=== PATIENT | female | born 1995 | race Caucasian/White ===

== ENCOUNTER 2017-06-22 15:12 | Observation (INO) ==
--- NOTE | 2017-06-22 15:26 | OB/GYN Progress Note ---
Date of Encounter: 06/22/17 Time of Encounter: 17:56 - Assessment and Plan (1) 28 weeks gestation of Status: Acute (2) Headache Status: Acute Plan: - PIH labs performed, negative - vitals within normal limits - performed OMT of the thoracic, neck, and head region. Pain decreased after. - gave education on using heat to help relax muscles, encouraged deep breathing exercises for relaxation - patient safe to discharge home Qualifiers: Headache type: tension-type Headache chronicity pattern: acute headache Intractability: not intractable Qualified Code(s): G44.209 - Tension-type headache, unspecified, not intractable Subjective - Subjective Principal diagnosis: headache Interval history: Patient is a 22 y/o female at 28 +0 weeks presented to L&D with headaches and changes in vision. Patient states that she has had 3 days of a headache on the right side of her forehead. Patient describes pain as achy 5/ 10. Patient states that this headache is different from her typical migraines as she is not sensitive to light or sound and location is different. Patient states that she has had some vision changes yesterday and today with associated dizziness. Patient did fall and arm but on a cushion in today after seeing white but had not eaten anything all day. Patient has tried Tylenol, magnesium , food, water, caffeine without relief. Patient has had a nasal congestion 2 weeks ago and was taking Mucinex and still has post viral cough. Patient denies fever, chills, vomiting, dysuria, hematuria, nausea, vomiting, shortness of breath, chest pain. Antepartum ROS: other (headache) Objective - Exam FHR: category 1 Auscultation: left: wheezes, right: normal Abdomen: Present: soft Uterus: Present: normal, firm Comments: MS: tender points at right medial inferior scapular border and right transverse process at C4. Tender points short pain straight up to her head. Somatic dysfunction at head and thoracic region.
[2017-06-22] MEDS ORDERED: Ringers Solution, Lactated 500 ML IVC ONE (15:31)
[2017-06-22] MEDS ORDERED: Ringers Solution, Lactated 1,000 ML IVC SCH (15:45)
[2017-06-22 16:10] LABS: Basophils % 0.2 %; Eosinophils # 0.1 K/mcL (0.0-0.6); Eosinophils % 0.7 %; Hematocrit 30.6 % (35.3-44.9); Hemoglobin 10.5 g/dL (11.5-15.4); Immature Granulocytes % 0.6 % (0-4); Lymphocytes # 2.5 K/mcL (0.6-4.6); Lymphocytes % 13.3 %; Mean Corpuscular HGB Conc 34.3 g/dL (31.6-35.5); Mean Corpuscular Hemoglobin 30.3 pg (28.0-33.3); Mean Corpuscular Volume 88.4 fL (83.0-100.0); Mean Platelet Volume 11.1 fL (9.4-12.4); Monocytes # 0.9 K/mcL (0.0-1.3); Monocytes % 4.7 %; Neutrophils # 15.1 K/mcL (1.6-8.9); Platelet Count 290 K/mcL (140-400); Red Blood Count 3.46 M/mcL (3.82-4.97); Segmented Neutrophils % 80.5 %
[2017-06-22 16:30] LABS: Alanine Aminotransferase 10 Units/L (7-52); Aspartate Amino Transferase 10 Units/L (13-39); BUN/Creatinine Ratio 13 (6-26); Blood Urea Nitrogen 6 mg/dL (6-20); Lactate Dehydrogenase 102 Units/L (140-271); Uric Acid 4.5 mg/dL (2.3-7.6); eGFR For African Americans > 60 (> 60); eGFR For Non-African Americans > 60 (> 60)
[2017-06-22 16:49] LABS: Amphetamine Screen,Urine Negative ng/mL (Cutoff=1000); Benzodiazepines Screen,Urine Negative ng/mL (Cutoff=200); Cannabinoid Screen,Urine Negative ng/mL (Cutoff = 50); Cocaine Screen,Urine Negative ng/mL (Cutoff= 300); Opiate Screen,Urine Negative ng/mL (Cutoff=300); Phencyclidine Screen,Urine Negative ng/mL (Cutoff=25)
[2017-06-22 16:50] LABS: Barbiturate Screen,Urine Positive ng/mL (Cutoff=200)
== END 2017-06-22 17:07 | disposition home or self-care (01) ==
LOC: 1NENULAB
PROVIDERS: ADMIT Obstetrics & Gynecology; ATTEND Obstetrics & Gynecology

== ENCOUNTER 2017-08-27 19:04 | Observation (INO) ==
--- NOTE | 2017-08-27 19:58 | OB/GYN Progress Note ---
Date of Encounter: 08/27/17 Time of Encounter: 19:54 - Assessment and Plan (1) 37 weeks gestation of Current Visit: Yes Status: Acute admitted for observation to r/o SROM (2) Vaginal discharge during in third trimester Current Visit: Yes Status: Acute Negative Pooling, Negative FERN No Fluid return after SVE Subjective - Subjective Principal diagnosis: Vaginal discharge Interval history: Patient is 22 y/o at 37w3d presents to labor and delivery with concerns of leaking fluid. Patient reports she has a small gush around 5:45pm. Patient reports that she was told if she had any leaking to come in for evaluation due to last JULIANA being 8.1cm. Patient is scheduled for repeat scan on 08/31/17. Patient denies any contractions, VB, vaginal itching, burning or odor, denies dysuria or urinary frequency. Patient reports +FM. Antepartum ROS: loss of fluid, movement normal, no vaginal bleeding, no contractions Objective - Vital Signs Vital Signs: Intake and Output 08/27/17 08/27/17 08/27/17 07:59 15:59 23:59 Other: Weight 82.4 kg Patient Weight 08/27/17 23:59 Weight 82.4 kg - Exam FHR: auscultation normal, category 1 FHR comments: baseline 140 bpm moderate amount of variability +15x15 accels no decels noted. No contractions noted. Auscultation: bilateral: normal Abdomen: Present: normal appearance, soft, gravid Cervical dilation: 1 Cervix effacement: 50 station: -3 Comments: speculum exam: Negative pooling, Negative FERN. small amount of white discharge noted.
--- NOTE | 2017-08-27 20:04 | Discharge Summary ---
Date of Encounter: 08/27/17 Time of Encounter: 20:03 - Discharge Diagnosis (1) 37 weeks gestation of Priority: Primary Status: Acute Comments: admitted for observation (2) Vaginal discharge during in third trimester Priority: Secondary Status: Acute Comments: SROM ruled out - Discharge Medications Home Medications: Famotidine [Pepcid] 20 mg PO BID #10 tablet 04/19/17 [Rx] Folic Acid 06/22/17 [History] Phenergan 06/22/17 [History] Formula Tablet 06/22/17 [History] Allergies/Adverse Reactions: 3 Allergy/AdvReac Type Severity Reaction Status Date / Time cephalexin [From Keflex] Allergy Hives Verified 02/01/15 20:33 tramadol [From Ultram] Allergy Nausea Verified 02/01/15 20:33 CLERNIO Allergy Hives Uncoded 02/01/15 20:33 Date of admission: 08/27/17 19:04 Discharging clinician: Linda Hyatt Anticipated date of discharge: 08/27/17 - Patient Status Disposition: Home, Self-Care Condition: Good Functional capacity at discharge: independent ambulation - Discharge Instructions Follow Up With: Haven Veliz CNM [Advanced Practice Nurse] - - Diet and Activity Activity: increase activity as tolerated Diet: regular diet Hospital Course IMPORT/EXPORT CLERK Time Attestation: Total time spent providing and/or coordinating discharge services: Time Spent: Less than 30 minutes Exam - Constitutional General appearance IM: A&O X 3, pleasant, answers questions appropriately - Respiratory Respiratory exam: Present: CTAB - Cardiovascular Cardiovascular exam IM: Present: RRR, +S1, +S2 - GI/Abdominal GI/Abdominal exam IM: normal bowel sounds - Extremities Exam Extremities exam IM: Present: full ROM, normal capillary refill, normal inspection - VTE Reasons for not Prescribing Prophylaxis: Treatment not Indicated - Low risk for VTE
[2017-08-27 21:00] LABS: Amphetamine Screen,Urine Negative ng/mL (Cutoff=1000); Barbiturate Screen,Urine Negative ng/mL (Cutoff=200); Benzodiazepines Screen,Urine Negative ng/mL (Cutoff=200); Cannabinoid Screen,Urine Negative ng/mL (Cutoff = 50); Cocaine Screen,Urine Negative ng/mL (Cutoff= 300); Opiate Screen,Urine Negative ng/mL (Cutoff=300); Phencyclidine Screen,Urine Negative ng/mL (Cutoff=25)
== END 2017-08-27 20:43 | disposition home or self-care (01) ==
LOC: 1NENULAB
PROVIDERS: ADMIT Advanced Practice Midwife; ATTEND Advanced Practice Midwife

== ENCOUNTER 2022-02-10 14:01 | Inpatient (IN) ==
[2022-02-10] MEDS ORDERED: Ondansetron 4 MG/2 ML VIAL IVP PRN ×2 (14:05→16:58)
[2022-02-10] MEDS ORDERED: Metoclopramide 10 MG/2 ML VIAL IVP PRN (14:05)
[2022-02-10] MEDS ORDERED: Naloxone 0.4 MG/ML INJ IVP PRN ×2 (14:05→16:58)
[2022-02-10] MEDS ORDERED: *HR* Nalbuphine 10 MG/ML AMPUL IV PRN (14:05)
[2022-02-10] MEDS ORDERED: miSOPROStoL 25 MCG TABLET PO PRN (14:05)
[2022-02-10] MEDS ORDERED: Lidocaine 1% 20 ML MDV INFILT PRN (14:05)
[2022-02-10] MEDS ORDERED: Azithromycin 500 MG in 0.9 % Sodium Chloride 250 ML IVPB PRN (14:05)
[2022-02-10] MEDS ORDERED: Famotidine 20 MG/2 ML VIAL IVP PRN (14:05)
[2022-02-10] MEDS ORDERED: Ringers Solution, Lactated 1,000 ML IVC SCH (14:15)
[2022-02-10 14:58] LABS: Basophils % 0.3 %; Eosinophils # 0.2 K/mcL (0.0-0.6); Eosinophils % 1.6 %; Hematocrit 30.3 % (35.3-44.9); Immature Granulocytes % 0.5 % (0-4); Lymphocytes # 2.1 K/mcL (0.6-4.6); Lymphocytes % 19.8 %; Mean Corpuscular Hemoglobin 27.6 pg (28.0-33.3); Mean Corpuscular Volume 83.7 fL (83.0-100.0); Monocytes # 0.7 K/mcL (0.0-1.3); Monocytes % 6.5 %; Neutrophils # 7.6 K/mcL (1.6-8.9); Platelet Count 332 K/mcL (140-400); Red Blood Count 3.62 M/mcL (3.82-4.97); Red Cell Distribution Width 13.1 % (11.5-14.5); Segmented Neutrophils % 71.3 %; White Blood Count 10.7 K/mcL (4.3-11.1)
[2022-02-10 15:06] LABS: Amphetamine Screen,Urine Negative ng/mL (Cutoff=1000); Barbiturate Screen,Urine Negative ng/mL (Cutoff=200); Benzodiazepines Screen,Urine Negative ng/mL (Cutoff=200); Cannabinoid Screen,Urine Negative ng/mL (Cutoff = 50); Cocaine Screen,Urine Negative ng/mL (Cutoff= 300); Opiate Screen,Urine Negative ng/mL (Cutoff=300); Phencyclidine Screen,Urine Negative ng/mL (Cutoff=25)
[2022-02-10] MEDS ORDERED: Oxytocin 30 UNIT/503 ML BAG IVC ONE (15:24)
[2022-02-10] MEDS: Oxytocin 30 UNIT/503 ML BAG IVC SCH (15:30)
[2022-02-10] MEDS ORDERED: Ropivacaine/PF 0.2% 20 ML VIAL EP ONE (16:58)
[2022-02-10] MEDS ORDERED: *HR* FentaNYL (PF) 100 MCG/2 ML VIAL EP ONE (16:58)
[2022-02-10] MEDS ORDERED: EPHEDrine 50 MG/ML VIAL IVP PRN (16:58)
[2022-02-10] MEDS ORDERED: Epidural Premix (fent/bupiv) 110 ML EP SCH (17:00)
[2022-02-11] MEDS: Oxytocin 30 UNIT/503 ML BAG IVC SCH (04:25)
[2022-02-11] MEDS ORDERED: Lanolin 7 G OINT...G. TP PRN (04:40)
[2022-02-11] MEDS ORDERED: Oxytocin 30 UNIT/503 ML BAG IVC SCH (04:40)
[2022-02-11] MEDS ORDERED: Benzocaine/Menthol 56 GM AEROSOL SPRAY TP PRN (04:40)
[2022-02-11] MEDS ORDERED: Ondansetron ODT 4 MG TAB.RAPDIS SL PRN (04:40)
[2022-02-11] MEDS: Acetaminophen 325 MG TABLET PO SCH ×2 (05:07→20:18)
[2022-02-11] MEDS: Ibuprofen 600 MG TABLET PO SCH ×2 (05:07→20:17)
[2022-02-11] MEDS ORDERED: NON-FORMULARY MEDICATION 1 EACH EACH (Prenatal Vitamin Tablet 1 TAB) PO SCH (09:00)
[2022-02-11] MEDS ORDERED: Prenatal Vit/FA 1 EACH TABLET PO SCH (09:00)
[2022-02-11] MEDS ORDERED: NON-FORMULARY MEDICATION 1 EACH EACH (Ferrous Sulfate 1 TAB) PO SCH (09:00)
[2022-02-11] MEDS ORDERED: Methylergonovine 0.2 MG/ML AMPUL IM ONE (09:36)
[2022-02-11 20:53] VITALS: O2SAT 98
[2022-02-12] MEDS: Acetaminophen 325 MG TABLET PO SCH (08:39)
[2022-02-12] MEDS: Ibuprofen 600 MG TABLET PO SCH (08:39)
[2022-02-12 08:52] VITALS: BP 106/69; PULSE 70; TEMP 97.9
== END 2022-02-12 17:31 | disposition home or self-care (01) | DRG 560 ==
LOC: 1NENULAB 14:01 → 1NENUOBS 02-11 04:34
PROVIDERS: ADMIT Registered Nurse; ATTEND Registered Nurse